=== PATIENT | male | born 1980 | race Caucasian/White ===

== ENCOUNTER 2020-12-11 18:52 | Emergency (ER) | payer BC, SELFPAY ==
--- NOTE | ~2020-12-11 | XR_ITS ---
EXAMINATION: XR abdomen/kub 1V DATE: 12/11/2020 19:24 INDICATION: Left flank pain. TECHNIQUE: A supine view of the abdomen on 2 radiographs was obtained. COMPARISON: None. FINDINGS: There are no dilated loops of bowel. A staple line overlies right abdomen. There is no visi ble urolithiasis. IMPRESSION: 1. No visible urolithiasis. Reviewed, dictated and finalized at location A. [employer] IMPRESSION: 1. No visible urolithiasis.
--- NOTE | 2020-12-11 19:04 | ED.GENADULT ---
HPI - General Adult General Chief complaint: Urogenital-Male Stated complaint: kidney infection Time Seen by Provider: 12/11/20 19:04 Source: patient Mode of arrival: ambulatory Limitations: no limitations History of Present Illness HPI narrative: 40-year-old male patient presents to the [facility] with complaints of left flank pain that radiates to the abdomen for the past 5 days. Patient denies any fevers or body aches but states he has had some chills here in there. Denies any pain with urination. Patient denies any concerns for STDs. Patient denies any history of kidney stones before in the past. Patient does workout daily but states he has not had any obvious injury that he is aware of. Related Data Home Medications Medication Instructions Recorded Confirmed lisinopril 10 mg PO DAILY 12/11/20 12/11/20 Allergies Allergy/AdvReac Type Severity Reaction Status Date / Time No Known Allergies Allergy Verified 12/11/20 19:04 Review of Systems Review of Systems: Narrative: CONSTITUTIONAL: Denies fever, chills, or sweats. EYES: Denies visual changes, redness, or discharge. ENT: Denies rhinorrhea, congestion, sore throat, or otalgia. CARDIOVASCULAR: Denies chest pain, palpitations, or edema. RESPIRATORY: Denies cough or dyspnea. GASTROINTESTINAL: Denies abdominal pain, nausea, vomiting, or diarrhea. GENITOURINARY: Denies dysuria or hematuria. SKIN: Denies rash or itching. MUSCULOSKELETAL: Positive left low back pain, denies joint pain, or myalgia. NEUROLOGIC: Denies headache, numbness, or weakness. PSYCHIATRIC: Denies anxiety or depression. [facility] Past Medical History Medical History (Updated 12/11/20 @ 19:49 by STEPHANIE Jay) Closed left ankle fracture Surgery on left ankle Hypertension Surgical History Surgical History (Updated 12/11/20 @ 19:17 by STEPHANIE Jay) History of appendectomy Family History Family History (Updated 12/11/20 @ 19:17 by STEPHANIE Jay) Other Heart disease Hypertension Social History Social History Gender identity (if verbalized by the patient): Male Comments At the time of my signature I agree with nursing past medical history, surgical, social, and family history. There is no relevant family history pertinent to the presenting complaint. Exam Narrative: Exam Narrative: GENERAL: Well-appearing, well-nourished, and in no acute distress. HEAD: Normocephalic, atraumatic. EYES: PERRLA and EOMI. ENT: Nares clear, no rhinorrhea or epistaxis. Mucous membranes moist. NECK: Supple. No lymphadenopathy CHEST: Clear to auscultation. No respiratory distress. HEART: Regular rate and rhythm. No murmur heard. Normal peripheral pulses. ABDOMEN: Soft, nontender, nondistended, normal active bowel sounds. Positive left CVA tenderness on percussion EXTREMITIES: Normal range of motion. No edema. SKIN: Warm, dry, no rash. NEURO: No focal deficits. Alert and oriented x3. Course Reevaluation(s) Reevaluation #1: Reevaluated patient after x-ray had been resulted. Discussed with him that there is no obvious evidence of kidney stones with x-rays but again this does not necessarily rule out kidney stones completely. Discussed with patient I encouraged him to drink plenty of fluid and I will go ahead and start him on an antibiotic today and send his urine off for culture since he is having some flank pain. Discussed with patient if his pain does not improve with the antibiotics and I encouraged him to call me and get a copy of the culture results and take it to his doctor for follow-up. Patient verbalized understanding denies any other questions or concerns at this time. Date: 12/11/20 Time: 19:53 Vital Signs Vital signs: Vital Signs Temperature 36.3 C L 12/11/20 19:06 Pulse Rate 58 L 12/11/20 19:06 Respiratory Rate 20 12/11/20 19:06 Blood Pressure 152/86 H 12/11/20 19:06 Pulse Oximetry 100 12/11/20 19
[2020-12-11 19:06] VITALS: BP 152/86; PULSE 58; RESP 20; TEMP 36.3; O2SAT 100
== END 2020-12-11 20:02 | disposition home or self-care (01) ==
PROVIDERS: Emergency Provider Nurse Practitioner Family; PCP Family Medicine
DX: R10.9 Unspecified abdominal pain (principal); I10 Essential (primary) hypertension
CPT/HCPCS: 74018; 81003; 87086; 99203; G0463